=== PATIENT | female | born 1950 | race Caucasian/White ===

== ENCOUNTER 2023-04-14 16:08 | Outpatient (CLI) | payer MEDICARE, OTHER ==
--- NOTE | 2023-04-15 09:12 | MRI Report ---
PROCEDURE: Knee LT WO INDICATIONS: KNEE PAIN TECHNIQUE: Noncontrast sagittal PD fast spin echo and T2 fast spin echo with fat saturation, sagittal 3-D spoile d GE with fat saturation; coronal T1 spin echo and PD fast spin echo with fat saturation, and axial P D fast spin echo with fat saturation through the knee. COMPARISON: None. FINDINGS: Image quality: Excellent. Anterior cruciate ligament: Intact. Posterior cruciate ligament: Intact. Medial collateral ligament: Small amount of fluid signal is seen within the proximal medial collater al ligament that is suspicious for a remote prior moderate grade sprain/partial tear. The majority of the ligament fibers remain in continuity. Lateral collateral ligament: Intact. Medial meniscus: Diminutive and irregular appearance of the body of the medial meniscus and portions of the posterior horn and posterior root attachment are suspicious for chronic complex degenerative tearing and maceration. Lateral meniscus: Mild free edge fibrillation versus shallow free edge tearing of the body of the la teral meniscus superimposed on mild intrasubstance degeneration. Medial and lateral tendons: The semimembranosus tendon insertions appear intact. Visualized portion s of the pes anserinus tendons appear normal. The popliteus tendon appears intact. Iliotibial band appears normal. Anterior structures: The patellar tendon and the distal quadriceps tendon appear intact. No patellar subluxation. No femoral trochlear dysplasia or ventral trochlear prominence. No edema in the infra patellar fat pad. Bones: No acute trabecular bone injury or fracture. Medial femorotibial cartilage: Full-thickness cartilage loss is seen throughout the majority of the remaining portion of the medial femorotibial compartment with subchondral sclerosis, subchondral humberto a, marginal osteophyte formation, and remodeling of the articular surfaces. Lateral femorotibial cartilage: High-grade versus full-thickness cartilage loss is seen in the centr al portion of the lateral femorotibial compartment with focal subchondral cystic changes. Small arsenio nal osteophytes are present. Patellofemoral cartilage: High-grade versus full-thickness cartilage loss at the lateral patellar fa cet with subchondral cystic changes. Multifocal cartilage irregularity is seen throughout the remaind er of the anterior compartment with small marginal osteophytes. Soft tissues: There is a moderate to large joint effusion. Small posterior pericapsular ganglion cys t measuring up to 2.1 x 1.5 x 1.0 cm with a 0.7 cm extracapsular component. There is a trace medial p opliteal cyst. The musculature surrounding the knee is normal in bulk. IMPRESSION: 1.Tricompartmental osteoarthrosis with diffuse full-thickness cartilage loss throughout the weightbea ring portion of the medial femorotibial compartment with remodeling of the articular surfaces. Areas of grade 3-4 chondromalacia are seen in the lateral femorotibial and patellofemoral compartments. Tri compartmental marginal osteophytes are present. 2.Complex degenerative tearing and maceration of the medial meniscus with extrusion of the meniscal b bernice. 3.Free edge fibrillation versus shallow free edge tearing of the body of the lateral meniscus superim posed on intrasubstance degeneration. 4.Remote prior grade 2 sprain/partial tear of the proximal medial collateral ligament. 5.Moderate to large joint effusion. Reviewed by: Myron Palmer MD on 04/15/2023 9:11 AM PST Approved by: Myron Palmer MD on 04/15/2023 9:11 AM PST Station ID: [id number]
== END 2023-04-14 16:09 | disposition home or self-care (01) ==
LOC: DI 16:08
PROVIDERS: ATTEND Internal Medicine
DX: M17.12 Unilateral primary osteoarthritis, left knee (principal); S83.232A Complex tear of medial meniscus, current injury, left knee, initial encounter; S83.282A Other tear of lateral meniscus, current injury, left knee, initial encounter; M25.462 Effusion, left knee; S83.412D Sprain of medial collateral ligament of left knee, subsequent encounter

== ENCOUNTER 2023-04-26 12:45 | Outpatient (CLI) | payer MEDICARE ==
--- NOTE | 2023-04-26 18:52 | XRAY Report ---
PROCEDURE: Knee 4 View LT INDICATIONS: LEFT KNEE PAIN TECHNIQUE: 4 views of the knee(s) were acquired. COMPARISON: MRI left knee, 04/14/2023. FINDINGS: Bones: No fractures or dislocations. No suspicious bony lesions. Moderate tricompartmental knee dayan nt degeneration. There is severe joint space narrowing with weightbearing in the medial femorotibial compartment. Chondrocalcinosis. Soft tissues: Moderate knee joint effusion. No suspicious soft tissue calcifications or masses. IMPRESSION: 1. No acute bony abnormality. 2. Moderate degenerative joint disease. 3. Chondrocalcinosis. Common etiologies are hyperparathyroidism and CPPD. 4. Moderate knee joint effusion. Reviewed by: Cinthya Gibson MD on 04/26/2023 5:51 PM [facility]DT Approved by: Cinthya Gibson MD on 04/26/2023 5:51 PM AKDT Station ID: [id number]
== END 2023-04-26 23:59 | disposition home or self-care (01) ==
LOC: DI.WOS 12:45
PROVIDERS: ATTEND Physician Assistant Surgical
DX: M17.12 Unilateral primary osteoarthritis, left knee (principal); M11.262 Other chondrocalcinosis, left knee; M25.462 Effusion, left knee